=== PATIENT | female | born 1935 | race Caucasian/White ===

== ENCOUNTER → 2016-11-29 15:10 | Outpatient (CLI) | payer MEDICARE, OTHER ==
[2016-03-16 11:15] VITALS: BMI 17.5
[~2016-11-29 15:10] MED LIST: BAYER CHEWABLE81 MG PO; BETAPACE 80 MG80 MG PO; CARAFATE1 G PO; CENTRUM SILVER1 TA2 PO; CITRACAL + D E1 EACH PO; COLACE100 MG PO; ESTER-C 500 MG1 TAB; ESTER-C 500 MG1 TAB PO; EVISTA60 MG PO; HYZAAR 100-25 T1 TAB PO; KLOR-CON M2020 MEQ PO; LIBRAX CAPSULE1 CAP PO; MIRALAX17 GM PO; NEXIUM20 MG PO; NEXIUM40 MG PO; NORCO 10/325 TA1 TA1 PO; NORVASC5 MG PO; PROTONIX40 MG PO; RESTORIL15 MG PO; ROBAXIN500 MG PO; SYNTHROID100 MCG PO; ULTRAM50 MG PO; XALATAN 0.0052.5 ML EACH EYE; ZYRTEC10 MG PO
== END | disposition home or self-care (01) ==
LOC: D.RAD 15:00
DX: K59.00 Constipation, unspecified (principal)

== ENCOUNTER 2017-01-10 10:43 | Outpatient (CLI) | payer MEDICARE, OTHER ==
[2017-01-10 11:48] VITALS: BP 126/76; Ht 165.1 cm
--- NOTE | 2017-01-10 11:50 | NUR ---
1140-STARTED PERIPHERAL IV TO LEFT FOREARM TIMES ONE ATTEMPT WITH 22G CATHETER, RECLAST PLACED ON PUMP OVER 30 MIN.
--- NOTE | 2017-01-10 13:19 | NUR ---
1210-INFUSION COMPLETED. IV D/C. 1215-DISCHARGE INSTRUCTIONS REVIEWED. TRANSPORTATION CALLED. 1230-D/C HOME
== END 2017-01-10 12:30 | disposition home or self-care (01) ==
LOC: D.OPS 10:43
DX: M81.0 Age-related osteoporosis without current pathological fracture (principal)

== ENCOUNTER 2017-01-15 19:25 | Emergency (ER) | payer MEDICARE, OTHER ==
[2017-01-15 20:28] LABS: BASOPHILS 0.3 % (0.0-2.0); EOSINOPHILS 2.5 % (0-7); HEMATOCRIT 38.8 % (36.0-48.0); HEMOGLOBIN 13.1 g/dL (12-16); IMMATURE GRANULOCYTES 0.2 % (0-5); MCH 30.8 pg (26.0-34.0); MCHC 33.8 g/dL (31.0-37.0); MCV 91.1 fL (80.0-100.0); MEAN PLATELET VOLUME 9.6 fL (7.4-10.4); MONOCYTES 10.5 % (2-11); NEUTROPHILS 66.5 % (40-80); RBC 4.26 10x6/uL (4.00-5.40); RDW 15.7 % (11.5-14.5)
[2017-01-15 20:30] LABS: PLATELET COUNT 176 10x3/uL (130-400)
[2017-01-15 21:10] LABS: CALC OSMOLALITY 271 mosm/kg (275-300); CALCIUM 8.3 mg/dL (8.5-10.1); CARBON DIOXIDE 29.2 mmol/L (21.0-32.0); CHLORIDE - SERUM 98 mmol/L (98-107); CREATININE - SERUM 0.6 mg/dL (0.6-1.3); GLUCOSE 130 mg/dL (74-106); POTASSIUM - SERUM 3.6 mmol/L (3.5-5.1); SODIUM 135 mmol/L (136-145); UREA NITROGEN 12 mg/dL (7-18); eGFR NON AFRICAN AMERICAN > 90 mL/min (90-120)
[2017-01-15 21:11] LABS: TROPONIN-I < 0.017 ng/mL (0.000-0.060)
[2017-01-15 21:26] LABS: APPEARANCE CLEAR (CLEAR); BILIRUBIN NEGATIVE (NEGATIVE); COLOR YELLOW (YELLOW); GLUCOSE NEGATIVE (NEGATIVE); KETONE NEGATIVE (NEGATIVE); LEUKOCYTE ESTERASE NEGATIVE (NEGATIVE); NITRITE NEGATIVE (NEGATIVE); PROTEIN NEGATIVE (NEGATIVE); UROBILINOGEN NORMAL (NORMAL)
== END 2017-01-15 23:04 | disposition home or self-care (01) ==
LOC: D.ER 19:25
PROVIDERS: Nurse Practitioner Acute Care
DX: I10 Essential (primary) hypertension (principal)